=== PATIENT | male | born 1940 | race Two or more races ===

== ENCOUNTER 2024-04-20 21:11 | Emergency (ER) | payer BC, MEDICARE ==
[~2024-04-20] VITALS: Ht 177.8 cm; Wt 90.0 kg
[2024-04-20] MEDS ORDERED: DexAMETHasone SOD PHOS 10MG/1ML VIAL INJ IV ONE (21:45)
[2024-04-20] MEDS: ALBUTEROL SULF 2.5 MG/0.5ML(0.5%) NEB SOLN NEB ONE (22:12)
[2024-04-20 22:15] LABS: Basophils # (auto) 0 10 ^3/uL (0-0.2); Basophils % (auto) 0.7 % (0.0-2.0); Eosinophils # (auto) 0.4 10 ^3/uL (0-0.8); Eosinophils % (auto) 6.3 % (0.0-7.0); Hematocrit 40.5 % (41.0-53.0); Hemoglobin 13.4 g/dL (13.5-17.5); Lymphocytes # (auto) 0.6 10 ^3/uL (0.4-5.4); Lymphocytes % (auto) 9.1 % (10.0-50.0); Mean Corpuscular Hemoglobin 32.6 pg (28.0-32.0); Mean Corpuscular Hgb Conc. 33.1 g/dL (32.0-36.0); Mean Corpuscular Volume 98.5 fL (80.0-100.0); Monocytes # (auto) 1.2 10 ^3/uL (0-1.3); Monocytes % (auto) 17.9 % (0.0-12.0); Neutrophils # (auto) 4.4 10 ^3/uL (1.6-8.6); Red Blood Cells 4.11 10^6/uL (4.5-5.90); Red Cell Distribution Width 14.6 % (11.8-14.3); White Blood Cell 6.6 10^3/uL (4.4-10.8)
[2024-04-20 22:24] LABS: Chloride 105 mmol/L (98-107); Potassium 4.6 mmol/L (3.5-5.1); Sodium 135 mmol/L (136-145)
[2024-04-20 22:25] LABS: Anion Gap 14 (5-15); Carbon Dioxide 16 mmol/L (20-30)
[2024-04-20 22:26] LABS: Calcium 9.3 mg/dL (8.7-10.4)
[2024-04-20 22:30] LABS: BUN/Creatinine Ratio 10.5 (10.0-20.0); Blood Urea Nitrogen 38 mg/dL (9-23); Glucose 116 mg/dL (74-106)
[2024-04-21] MEDS: AZITHROMYCIN 250 MG TAB PO ONE (00:32)
[2024-04-21] MEDS: DexAMETHasone SOD PHOS 10MG/1ML VIAL INJ IM ONE (00:33)
[2024-04-21] MEDS ORDERED: AZIT-185 PO (01:13)
[2024-04-21] MEDS ORDERED: PRED20TA2 PO (01:13)
[2024-04-21 01:42] VITALS: BP 145/67; PULSE 90; RESP 16; O2SAT 94
== END 2024-04-21 01:45 | disposition home or self-care (01) ==
LOC: ER 21:11
DX: J44.1 Chronic obstructive pulmonary disease with (acute) exacerbation (principal); I10 Essential (primary) hypertension; Z90.49 Acquired absence of other specified parts of digestive tract; Z98.890 Other specified postprocedural states
CPT/HCPCS: 36415; 36600; 71045; 80048; 82805; 83880; 84484; 85025; 93005; 94640; 96372; 99285; J1100